=== PATIENT | male | born 1985 | race African-American/Black ===

== ENCOUNTER 2019-11-04 19:35 | Emergency (ER) | payer OTHER ==
[~2019-11-04] VITALS: Ht 170.2 cm; Wt 93.9 kg
[2019-11-04 20:41] LABS: URINE BILIRUBIN NEGATIVE (Negative); URINE BLOOD NEGATIVE (Negative); URINE CLARITY CLEAR; URINE COLOR YELLOW; URINE GLUCOSE-RANDOM* NEGATIVE (Negative); URINE KETONES TRACE (Negative); URINE LEUKOCYTES-REFLEX NEGATIVE (Negative); URINE NITRITE-REFLEX NEGATIVE (Negative); URINE PROTEIN (DIPSTICK) NEGATIVE (Negative); URINE SPECIFIC GRAVITY >= 1.030 (1.005-1.035); URINE UROBILINOGEN 0.2 E.U./dl (0.2-1.0)
[2019-11-04] MEDS ORDERED: NORCO 5-325 TA1 EAC1 PO (21:08)
[2019-11-04 22:59] LABS: HEMATOCRIT 40.6 % (42.0-52.0); HEMOGLOBIN 13.5 gm/dL (14.0-18.0); MCH 30.5 pg (26.0-34.0); MCHC 33.3 g/dL (28.0-37.0); MCV 91.6 fL (80.0-100.0); PLATELET COUNT 150 thou/uL (150-400); RBC 4.44 mil/uL (4.50-6.00); RDW 13.5 % (10.5-14.5); WBC 4.6 thou/uL (4.0-11.0)
[2019-11-04 23:02] LABS: CALCIUM 9.1 mg/dL (8.5-10.1); CREATININE 1.3 mg/dL (0.7-1.3); POTASSIUM 3.8 mmol/L (3.5-5.1)
[2019-11-04 23:45] LABS: ABSOLUTE NEUTROPHILS 2.9 thou/uL (1.4-8.2)
[2019-11-04 23:46] LABS: LARGE PLATELETS FEW; PLATELET ESTIMATE NORMAL
[2019-11-05] VITALS: BP 115/70
== END 2019-11-05 00:58 | disposition home or self-care (01) ==
LOC: ER 19:35
PROVIDERS: Nurse Practitioner Family
DX: K40.90 Unilateral inguinal hernia, without obstruction or gangrene, not specified as recurrent (principal); F17.200 Nicotine dependence, unspecified, uncomplicated